=== PATIENT | male | born 1960 | race Caucasian/White ===

== ENCOUNTER 2024-04-24 21:07 | Emergency (ER) | payer OTHER, SELFPAY ==
[2024-04-24 21:19] VITALS: BP 151/84
[2024-04-24 21:47] LABS: % Basophils 0.3 % (0-2); % Eosinophils 1.5 % (0-6); % Immature Granulocytes 0.3 % (0-0.5); % Lymphocytes 28.4 % (20.5-51.1); % Monocytes 7.8 % (1.7-9.3); % Neutrophils 61.7 % (42.2-75.2); Absolute Eosinophils 0.1 10^3/uL (0-0.7); Absolute Lymphocytes 2.5 10^3/uL (1.2-3.4); Absolute Monocytes 0.7 10^3/uL (0.1-0.6); Absolute Neutrophils 5.5 10^3/uL (1.4-6.5); Hematocrit 44.3 % (39.0-52.0); Hemoglobin 14.4 g/dL (13.0-18.0); Mean Corp Hgb Conc. 32.5 g/dL (33.0-37.0); Mean Corpuscular Hgb 29.1 pg (27.0-31.0); Mean Corpuscular Volume 89.7 fL (80.0-94.0); Mean Platelet Volume 9.4 fL (7.4-10.4); Nucleated Red Blood Cells % 0 % (-); Platelet Count 212 10^3/uL (130-400); Red Blood Cell Count 4.94 10^6/uL (4.70-6.10); Red Cell Dist. Width 13.2 % (11.5-14.5); White Blood Cell Count 8.9 10^3/uL (4.8-10.8)
[2024-04-24 21:59] LABS: Urine Albumin Negative (Neg - Trace); Urine Bilirubin Negative (Negative); Urine Character Clear (Clear); Urine Color Yellow; Urine Glucose 3+ (Negative); Urine Ketone Negative (Negative); Urine Leukocyte Negative (Negative); Urine Nitrite Negative (Negative); Urine Occult Blood Negative (Negative); Urine Urobilinogen Negative (Neg - 1+)
[2024-04-24 22:12] LABS: ALT (SGPT) < 10 U/L (0-50); AST (SGOT) 23 U/L (17-59); Albumin 4.2 g/dl (3.5-5.0); Alkaline Phosphatase 76 U/L (38-126); Blood Urea Nitrogen 22 mg/dl (9-20); Calcium 9.2 mg/dl (8.4-10.2); Carbon Dioxide 29 mmol/L (22-30); Chloride 102 mmol/L (98-107); Glucose 114 mg/dl (70-99); Lipase 312 U/L (23-300); Potassium 4.2 mmol/L (3.5-5.1); Sodium 141 mmol/L (135-145); Total Bilirubin 0.4 mg/dl (0.2-1.3); Total Protein 6.9 g/dl (6.3-8.2); eGFR 55.43
--- NOTE | 2024-04-24 23:41 | ED.GENMED ---
History of Present Illness
General
Chief Complaint: Flank Pain
Source: patient and spouse
Exam Limitations: none
Time Seen by Provider: 04/24/24 22:54
Nursing documentation reviewed up to this point in time: agreed with
History of Present Illness
History of Present Illness:
This is a pleasant 64-year-old male who presents to the emergency department with flank pain that has been having intermittently for the last year. He is concerned because he has a kidney stone history. Patient denies fever chills or any urinary
symptoms. Does report intermittent nausea or vomiting. Denies chest pain or shortness of
Past History
Past History
ED Past Medical History: GERD, HTN, Hypercholesterolemia, NIDDM, Psychiatric (Anxiety) and Other (Gastritis, Vertigo, Migraines,)
ED Past Surgical History: Tonsilectomy and Other (Anal fissure repair)
Social History
Tobacco: Non-smoker
Alcohol: None
Personal:
Living: with family
Employment: Employed ([employer])
Family History
Family History: CAD
Review of Systems
Review of Systems
Allergies reviewed?: Yes
All Other Systems: ROS reviewed and negative except as documented in HPI and ROS
Constitutional: Denies fever
ABD/GI: Denies abdominal pain, nausea, vomiting, constipated or black stools
: Reports flank pain
Psychiatric: Reports anxiety
Phy Exam
General Physical Exam
General Presentation: well appearing and mild distress
General age: appears stated age
General Habitus: normal
General Mental: alert
General Hydration: appears well hydrated
Cardiovascular Exam
Cardiovascular Exam: regular rate/rhythm and no edema
Pulmonary Exam
Pulmonary Exam: lungs clear and no respiratory distress
Musculoskeletal Exam
Musculoskeletal Exam: full ROM, no edema and neuro vasc intact
Skin Exam
Skin Exam: normal color and warm/dry
Psychiatric Exam
Psychiatric Exam: normal mood/affect
Course
Orders/Labs/Results
Orders:
Orders
04/24/24 21:27
CMP [Comprehensive Metabolic Panel] Urgent
Complete Blood Count/With Diff Urgent
Lipase Urgent
04/24/24 21:33
Urine Culture Reflexed from UA [Urinalysis Reflex To Culture] Urgent
Date Specimen was Collected: 04/24/24
Time Specimen was Collected: 21:23
04/24/24 23:47
Ketorolac [Toradol] 15 mg IV NOW STA
04/25/24 00:04
CT Abd/pelvis W Iv Cont Urgent
Reason For Exam: flank pain
04/25/24 02:36
Lidocaine [Lidocaine 4% Patch] 1 patch TOPICAL NOW STA
Apply Lidocaine patch(s) to:: r side of spine
Abnormal Lab Results
04/24/24 04/24/24
21:27 21:33
MCHC 32.5 L g/dL
(33.0-37.0)
Absolute Monos (auto) 0.7 H 10^3/uL
(0.1-0.6)
BUN 22 H mg/dl
(9-20)
Creatinine 1.4 H mg/dL
(0.7-1.3)
Glucose 114 H mg/dl
(70-99)
Lipase 312 H U/L
(23-300)
Urine Glucose 3+ A
(Negative)
04/24/24 21:27
04/24/24 21:27
Vital Signs
Initial and Last Documented VS:
Initial Vital Signs
Temp Pulse Resp BP Pulse Ox
98.2 F 74 18 151/84 99
04/24/24 21:19 04/24/24 21:19 04/24/24 21:19 04/24/24 21:19 04/24/24 21:19
Last Documented Vital Signs
Temp Pulse Resp BP Pulse Ox
98.2 F 74 19 158/91 96
04/24/24 21:19 04/25/24 02:45 04/25/24 02:45 04/25/24 02:45 04/25/24 02:45
*Critical Care Note
Total Time (30-74mins, 75-104mins- exclusive of procedures): Not Applicable
Update Note
Update Note:
CT AP with contrast
Comparison: None available
IMPRESSION:
No definite cause for acute abdominal pain identified.
Normal appendix.
No calcified gallstones.
No bowel obstruction or bowel wall thickening.
No obstructive urolithiasis.
No free fluid nor free air.
ED Attending Note
-
Portions of this chart may have been created with voice recognition software.� Occasional wrong word or��sound alike� substitutions may have occurred due to the inherent limitations of voice recognition software.
Discharge Plan
Departure
Patient Disposition: Home (Routine Discharge)
Date of Disposition: 04/25/24
Time of Disposition: 02:44
Patient with high blood pressure during this ER visit?: Yes
Condition: Good
Discharge Problem:
Chronic flank pain
Instructions: Flank Pain (DC), BLOOD PRESSURE, Musculoskeletal Pain
Prescriptions:
No Action
aspirin 81 MG tablet,delayed release (DR/EC)
81 mg PO DAILY
omeprazole 20 MG capsule,delayed release(DR/EC)
20 mg PO BID Qty: 30 0RF
sucralfate [Carafate] 1 GM/10 ML suspension
1 gm PO Q6 Qty: 560 0RF
Rx Instructions:
take for next 2 weeks
losartan 50 mg Tablet
50 mg PO BID
atorvastatin 10 mg Tablet
10 mg PO DAILY
Patient Comments:
alprazolam [Xanax] 0.25 mg Tablet
0.25 mg PO HS PRN (Reason: anxiety)
Xigduo XR 10-1,000 mg Tablet, Ir - Er, Biphasic 24hr
1 tab PO DAILY
Basaglar KwikPen U-100 Insulin
42 units SC DAILY
Referrals:
Moises Farley MD [Family Provider] -
Activity Restrictions/Additional Instructions:
Please use the lidocaine patches that you have at home. Apply 1 to your back every 12 hours. Use only as needed. Please follow-up with your primary care provider for recheck and further testing.
It was a pleasure meeting you and taking part in your care. We hope for your continued healing and wellness.
Please read discharge instructions in their entirety. However, they are for general education and may not describe your exact diagnosis at discharge. Information on your ER visit and medical conditions were discussed with you along with appropriate
follow up information...
If indicated, please take your medications as instructed and indicated on discharge paperwork.
Please schedule a follow up appointment as directed. Call to schedule an appointment
Please return to the emergency department with ANY change in, persisting, or worsening of symptoms. If any of your symptoms do not improve, or persist, or become more severe within 6-12 hours, please return to the emergency department for further
care.
Please return to the emergency department if you develop a headache, neck pain/stiffness, fever greater than 100.4F, chest pain, shortness of breath, persistent nausea, vomiting, slurred speech, difficulty walking, numbness/tingling, weakness, signs
of infection or any other symptoms that are worrisome to you.
If you have any questions or concerns please do not hesitate to call the Hospital at or E-mail me directly at [email or web address]
Interventions
Interventions:
*Risk Screen - Suicide Last Done: 04/24/24 22:56
*General Assessment Last Done: 04/24/24 21:19
*Neglect/Abuse Screening Last Done: 04/24/24 22:56
ED- Fall Risk Assessment Last Done: 04/24/24 22:55
*ED COVID-19 Vaccine History Last Done: 04/24/24 22:56
*Nursing Disposition Last Done: 04/25/24 02:50
KJ-Oqnyqu-Ozqxbmaxtd Assessment Last Done: 04/24/24 22:55
ED-Male Genitourinary Assessment Last Done: 04/24/24 22:55
Discharge Date and Time
Discharge Date/Time: 04/25/24 02:50
Print Language: AMERICAN
[2024-04-24] MEDS: TORADOL 15 MG IV (23:49)
[2024-04-25] MEDS: LIDOCAINE 4% PATCH 1 PATCH TOPICAL (02:40)
[2024-04-25 02:45] VITALS: BP 158/91
== END 2024-04-25 02:50 | disposition home or self-care (01) ==
LOC: EMR 21:07
PROVIDERS: Emergency Medicine; EMERGENCY PHYSICIAN Student in an Organized Health Care Education/Training Program; FAMILY PHYSICIAN Internal Medicine
DX: G89.29 Other chronic pain (principal); R10.9 Unspecified abdominal pain; K21.9 Gastro-esophageal reflux disease without esophagitis; I10 Essential (primary) hypertension; E78.00 Pure hypercholesterolemia, unspecified; E11.9 Type 2 diabetes mellitus without complications; Z87.442 Personal history of urinary calculi
CPT/HCPCS: 99284; 96374; 74177; 80053; 81003; 83690; 85025; Q9967

== ENCOUNTER → 2024-04-26 14:46 | Outpatient (REF) | payer OTHER, SELFPAY | LOC: RAD 14:46 | PROVIDERS: ATTENDING PHYSICIAN Internal Medicine | DX: S39.012S Strain of muscle, fascia and tendon of lower back, sequela (principal) | CPT/HCPCS: 72110; 73502 ==

== ENCOUNTER 2025-01-19 11:54 | Outpatient (RCR) | payer OTHER, SELFPAY | END 2025-01-19 23:59 | disposition home or self-care (01) | LOC: RPT 11:54 | PROVIDERS: ATTENDING PHYSICIAN Internal Medicine | DX: R42 Dizziness and giddiness (principal); M54.50 Low back pain, unspecified; Z73.6 Limitation of activities due to disability; G20.A1 Parkinson's disease without dyskinesia, without mention of fluctuations | CPT/HCPCS: 97112; 97163 ==

== ENCOUNTER 2025-02-20 14:10 | Outpatient (RCR) | payer OTHER, SELFPAY | END 2025-02-20 23:59 | disposition home or self-care (01) | LOC: RPT 14:10 | PROVIDERS: ATTENDING PHYSICIAN Internal Medicine | DX: R42 Dizziness and giddiness (principal); M54.50 Low back pain, unspecified; Z73.6 Limitation of activities due to disability; G20.A1 Parkinson's disease without dyskinesia, without mention of fluctuations | CPT/HCPCS: 97110; 97112; 97140 ==

== ENCOUNTER 2025-03-17 09:48 | Outpatient (RCR) | payer OTHER, SELFPAY | END 2025-03-17 23:59 | disposition home or self-care (01) | LOC: RPT 09:48 | PROVIDERS: ATTENDING PHYSICIAN Internal Medicine | DX: R42 Dizziness and giddiness (principal); M54.50 Low back pain, unspecified; Z73.6 Limitation of activities due to disability; G20.A1 Parkinson's disease without dyskinesia, without mention of fluctuations; R26.2 Difficulty in walking, not elsewhere classified | CPT/HCPCS: 97110; 97112; 97140; 97164 ==

== ENCOUNTER 2025-03-24 02:28 | Emergency (ER) | payer OTHER, SELFPAY ==
[2025-03-24 02:32] VITALS: BP 169/88
[2025-03-24 02:48] VITALS: BP 155/83
[2025-03-24 03:00] VITALS: BP 148/84
[2025-03-24 03:38] LABS: Hematocrit 46.0 % (39.0-52.0); Hemoglobin 14.6 g/dL (13.0-18.0); Mean Corp Hgb Conc. 31.7 g/dL (33.0-37.0); Mean Corpuscular Volume 91.1 fL (80.0-94.0); Nucleated Red Blood Cells % 0 % (-); Platelet Count 211 10^3/uL (130-400); Red Cell Dist. Width 13.0 % (11.5-14.5)
[2025-03-24 03:53] LABS: ALT (SGPT) 14 U/L (0-50); AST (SGOT) 22 U/L (17-59); Albumin 4.4 g/dl (3.5-5.0); Alkaline Phosphatase 73 U/L (38-126); Blood Urea Nitrogen 16 mg/dl (9-20); Calcium 9.4 mg/dl (8.4-10.2); Carbon Dioxide 31 mmol/L (22-30); Chloride 102 mmol/L (98-107); Glucose 107 mg/dl (70-99); Potassium 4.3 mmol/L (3.5-5.1); Sodium 138 mmol/L (135-145); Total Protein 7.0 g/dl (6.3-8.2); eGFR > 60.00
[2025-03-24 04:04] LABS: Troponin I < 0.012 ng/ml
[2025-03-24 05:00] VITALS: BP 158/84
[2025-03-24 06:00] LABS: Troponin I < 0.012 ng/ml
--- NOTE | 2025-03-24 06:16 | ED.GENMED ---
History of Present Illness
General
Chief Complaint: Chest Pain
Source: patient
Exam Limitations: none
Time Seen by Provider: 03/24/25 02:43
History of Present Illness
History of Present Illness:
Note:
CHIEF COMPLAINT(S)
Intermittent chest pain and neck discomfort.
HISTORY OF PRESENT ILLNESS
The patient is a 65-year-old male with a history of Parkinsons disease, glaucoma, gastroesophageal reflux disease, and type 2 diabetes, who presented with intermittent chest pain and neck discomfort. These symptoms began earlier in the week but
became more concerning the evening prior to presentation. At approximately 7:30 PM, the patient lay down and fell asleep, only to be awakened around 2:00 AM by pain. Upon checking his blood pressure, he noted irregular readings, contributing to
anxiety about his condition. He mentioned that a physician he consulted earlier suggested he visit a hospital, but at that time, he opted not to go. The pain subsided somewhat, especially during physical activity, as evidenced by walking back home
without shortness of breath. He exercises regularly with a program known as [employer], designed for patients with Parkinsons disease, and hasnt had similar episodes in the past years that required emergency intervention. Historical episodes
were attributed to gastroesophageal reflux disease.
PAST MEDICAL AND SURGICAL HISTORY
The patient has a notable medical history of Parkinsons disease, glaucoma, gastroesophageal reflux disease, and type 2 diabetes. He has experienced chest pain in the past, which was attributed to reflux.
ADDITIONAL HISTORY OBTAINED FROM SOURCES OTHER THAN THE PATIENT
The patient shared information initially provided by a physician suggesting emergency care due to his symptoms.
CHRONIC MEDICAL CONDITIONS SIGNIFICANTLY AFFECTING CARE
Parkinsons disease
Glaucoma
Gastroesophageal reflux disease (GERD)
Type 2 diabetes
SOCIAL HISTORY
The patient denies smoking, alcohol use, and recreational drug use. Professionally, he was formerly a computer hardware technician and musician. He engages in regular exercise tailored for Parkinson�s disease management and attends physical therapy for knee
issues.
REVIEW OF SYSTEMS
- Cardiovascular: Intermittent chest pain occurring since earlier this week, not exacerbated by physical activity.
- Musculoskeletal: Participates in regular physical exercise and physical therapy for knee concerns.
PHYSICAL EXAM
General: Alert, no acute distress.
Skin: Warm, dry.
Head: Normocephalic, atraumatic.
Neck: Supple, trachea midline.
Eye Ears, nose, mouth, and throat: Oral mucosa moist.
Cardiovascular: Normal peripheral perfusion, No edema.
Respiratory: Respirations are non-labored.
Gastrointestinal: Abdomen nondistended
Back: Normal range of motion, Normal alignment.
Musculoskeletal: Normal range of motion, normal strength.
Neurological: Alert and oriented to person, place, time, and situation, No focal neurological deficit observed.
Psychiatric: Cooperative, appropriate mood & affect.
PLAN
- Perform a thorough cardiac workup.
- Contact Dr. Zamarripa office to arrange for further cardiac evaluation, possibly including a stress test.
- Await a call from Dr. Zamarripa office for an appointment.
DIFFERENTIAL DIAGNOSIS
The Differential Diagnosis includes, in no particular order and is not limited to:
1. Cardiac ischemia
2. Angina pectoris
3. Gastroesophageal reflux disease
4. Anxiety-related somatic symptoms
5. Musculoskeletal pain
6. Cervical radiculopathy
7. Costochondritis
8. Acute coronary syndrome
9. Pericarditis
10. Pulmonary embolism (less likely)
Disposition:
SUMMARY OF ENCOUNTER
The patient, a 65-year-old male, presented with intermittent chest pain. Initial diagnostic testing, including future opponents and EKGs, returned negative results, and the patients chest pain lessened while at rest in the emergency department.
Given the absence of acute findings, it was deemed safe for the patient to be discharged with plans for further evaluation through a cardiology follow-up.
DISPOSITION
Discharge.
PLAN
Follow-up with cardiology through the chest pain follow-up hotline.
PATIENT EDUCATION AND COUNSELING
The patient was advised about the necessity for further evaluation with cardiology to ensure comprehensive cardiac assessment and management of symptoms.
FOLLOW-UP INSTRUCTIONS
The patient is instructed to follow up with cardiology through the chest pain follow-up hotline.
MEDICATION RECONCILIATION
Prescription medication was considered, but ultimately not given after discussion with the patient/family.
MEDICAL DECISION MAKING
- Number and Complexity of Problems Addressed: Chronic conditions affecting care: Parkinsons disease, glaucoma, gastroesophageal reflux disease (GERD), type 2 diabetes.
Differential diagnosis consideration included cardiac ischemia, angina pectoris, GERD, anxiety-related somatic symptoms, musculoskeletal pain, cervical radiculopathy, costochondritis, acute coronary syndrome, pericarditis, and pulmonary embolism.
- Data:
Category 1:
- Clinical information was obtained from an independent historian.
- EKG tests were ordered and reviewed.
Category 3:
- Consideration of the patient�s stable condition and management plan discussed with the patient.
-Risk:
- Prescription medication was considered, but ultimately not given after discussion with the patient/family.
- Consideration of Admission/Observation: Escalation of care including admission/observation was considered given the complexity and risk of the patients presenting complaint, exam findings, and their underlying comorbidities. However, ultimately I
feel the patient is safe for outpatient management with close follow-up. Reasoning: Work-up reassuring, does not reveal any acute life/organ threatening processes, patients symptoms well controlled upon reevaluation, reexamination is reassuring,
vitals are stable, patient agreeable with discharge, reliable for follow-up.
DIAGNOSIS
- R07.9 Chest pain, unspecified.
- Z79.4 Long-term (current) use of insulin (for type 2 diabetes).
Past History
Past History
ED Past Medical History: GERD, HTN, Hypercholesterolemia, NIDDM, Psychiatric (Anxiety) and Other (Gastritis, Vertigo, Migraines,)
ED Past Surgical History: Tonsilectomy and Other (Anal fissure repair)
Social History
Tobacco: Non-smoker
Alcohol: None
Personal:
Living: with family
Employment: Employed ([employer])
Family History
Family History: CAD
Phy Exam
Physical Exam
Physical Exam:
.
Scores
Heart Score for Chest Pain Patients
STEMI patient?: No
History: Slightly or Non-Suspicious
ECG: Normal
Age: >/= 65 years
Risk Factors: No Risk Factors
Troponin: >1 - <3 x Normal Limit
Heart Score for Chest Pain Patients: 3
Heart Score Risk: 2.5% MACE over next 6 weeks
Course
Orders/Labs/Results
Orders:
Orders
03/24/25 02:29
Electrocardiogram (*1) Urgent
Reason for Study: Other
Other Reason for Exam: Respiratory Distress
Cardiac Monitoring- Treatment ONCE
EKG- Treatment ONCE
IV Insert/Care/Rem.- Treatment PRN
CR Chest - 2 Views Urgent
Comment:
Reason For Exam: respiratory distress
O2 Therapy [RESP] Urgent
Titrate/Wean O2 to maintain O2 sat greater than (%): 93
Special Instructions: TO MAINTAIN CONTINUOUS O2 SATS >/= 93%
Pulse Ox/cont/shift [RESP] Urgent
Quantity: 1
Special Instructions: continuous pulse ox
03/24/25 03:13
Complete Blood Count/With Diff Urgent
Comprehensive Metabolic Panel Urgent
NT-proBNP Urgent
Troponin I Urgent
03/24/25 04:02
EKG [Electrocardiogram (*1)] Urgent
Reason for Study: Chest Pain
03/24/25 04:03
EKG- Treatment ONCE
03/24/25 04:52
Troponin I Urgent
Abnormal Lab Results
03/24/25
03:13
MCHC 31.7 L g/dL
(33.0-37.0)
Carbon Dioxide 31 H mmol/L
(22-30)
Glucose 107 H mg/dl
(70-99)
03/24/25 03:13
03/24/25 03:13
Vital Signs
Initial and Last Documented VS:
Initial Vital Signs
Temp Pulse Resp BP Pulse Ox
98.1 F 77 20 169/88 96
03/24/25 02:32 03/24/25 02:32 03/24/25 02:32 03/24/25 02:32 03/24/25 02:32
Last Documented Vital Signs
Temp Pulse Resp BP Pulse Ox
98.1 F 82 16 160/82 96
03/24/25 02:32 03/24/25 05:45 03/24/25 05:45 03/24/25 06:32 03/24/25 06:17
*Pulse Oximetry
SaO2: 96
Oxygen Mode of Delivery: Room air
Patient hypoxic: not evaluated
*Critical Care Note
Total Time (30-74mins, 75-104mins- exclusive of procedures): Not Applicable
ED Attending Note
-
Portions of this chart may have been created with voice recognition software.� Occasional wrong word or��sound alike� substitutions may have occurred due to the inherent limitations of voice recognition software.
Discharge Plan
Departure
Patient Disposition: Home (Routine Discharge)
Date of Disposition: 03/24/25
Time of Disposition: 06:19
Patient with high blood pressure during this ER visit?: Yes
Condition: Good
Discharge Problem:
Chest pain
Instructions: Chest Pain CBC Follow Up, BLOOD PRESSURE
Prescriptions:
No Action
aspirin 81 MG tablet,delayed release (DR/EC)
81 mg PO DAILY
omeprazole 20 MG capsule,delayed release(DR/EC)
20 mg PO BID Qty: 30 0RF
sucralfate [Carafate] 1 GM/10 ML suspension
1 gm PO Q6 Qty: 560 0RF
Rx Instructions:
take for next 2 weeks
losartan 50 mg Tablet
50 mg PO BID
atorvastatin 10 mg Tablet
10 mg PO DAILY
Patient Comments:
alprazolam [Xanax] 0.25 mg Tablet
0.25 mg PO HS PRN (Reason: anxiety)
Xigduo XR 10-1,000 mg Tablet, Ir - Er, Biphasic 24hr
1 tab PO DAILY
Basaglar KwikPen U-100 Insulin
42 units SC DAILY
sucralfate 100 mg/mL suspension
10 ml PO TID Qty: 400 0RF
Referrals:
Moises Farley MD [Family Provider, Internal Medicine]
Activity Restrictions/Additional Instructions:
Thank You for choosing [facility].
It was a pleasure meeting you and taking part in your care. We hope for your continued healing and wellness.
Please read discharge instructions in their entirety. However, they are for general education and may not describe your exact diagnosis at discharge. Information on your ER visit and medical conditions were discussed with you along with appropriate
follow up information...
If indicated, please take your medications as instructed and indicated on discharge paperwork.
Please schedule a follow up appointment as directed. Call to schedule an appointment
Please return to the emergency department with ANY change in, persisting, or worsening of symptoms. If any of your symptoms do not improve, or persist, or become more severe within 6-12 hours, please return to the emergency department for further
care.
Please return to the emergency department if you develop a headache, neck pain/stiffness, fever greater than 100.4F, chest pain, shortness of breath, persistent nausea, vomiting, slurred speech, difficulty walking, numbness/tingling, weakness, signs
of infection or any other symptoms that are worrisome to you.
If you have any questions or concerns please do not hesitate to call the Hospital at .
Interventions
Interventions:
*Risk Screen - Suicide Last Done: 03/24/25 02:32
*General Assessment Last Done: 03/24/25 02:32
*Neglect/Abuse Screening Last Done: 03/24/25 02:41
*ED- Fall Risk Assessment Last Done: 03/24/25 02:41
*ED COVID-19 Vaccine History Last Done: 03/24/25 06:33
*ED Influenza Vaccine History Last Done: 03/24/25 06:33
*Nursing Disposition Last Done: 03/24/25 06:33
ED- Cardiac Assessment Last Done: 03/24/25 05:38
Discharge Date and Time
Discharge Date/Time: 03/24/25 06:33
Print Language: [email or web address]
[2025-03-24 06:32] VITALS: BP 160/82
== END 2025-03-24 06:33 | disposition home or self-care (01) ==
LOC: EMR 02:28
PROVIDERS: EMERGENCY PHYSICIAN Student in an Organized Health Care Education/Training Program; FAMILY PHYSICIAN Internal Medicine
DX: R07.89 Other chest pain (principal); Y93.71 Activity, boxing; M54.2 Cervicalgia; G20.A1 Parkinson's disease without dyskinesia, without mention of fluctuations; E11.9 Type 2 diabetes mellitus without complications; E78.00 Pure hypercholesterolemia, unspecified; F41.9 Anxiety disorder, unspecified; H40.9 Unspecified glaucoma; I10 Essential (primary) hypertension; K21.9 Gastro-esophageal reflux disease without esophagitis; Z82.49 Family history of ischemic heart disease and other diseases of the circulatory system; Z87.19 Personal history of other diseases of the digestive system
CPT/HCPCS: 99283; 71046; 71275; 80053; 83880; 84484; 85025; 93005; Q9967

== ENCOUNTER 2025-03-24 12:24 | Emergency (ER) | payer OTHER, SELFPAY ==
[2025-03-24] VITALS (8 sets, daily range): BP systolic 143–158; BP diastolic 76–90; BMI 38.4
[2025-03-24 14:07] LABS: Hematocrit 44.3 % (39.0-52.0); Hemoglobin 14.8 g/dL (13.0-18.0); Mean Corp Hgb Conc. 33.4 g/dL (33.0-37.0); Mean Corpuscular Volume 87.5 fL (80.0-94.0); Nucleated Red Blood Cells % 0 % (-); Platelet Count 216 10^3/uL (130-400); Red Cell Dist. Width 13.1 % (11.5-14.5)
[2025-03-24 14:18] LABS: ALT (SGPT) 10 U/L (0-50); AST (SGOT) 20 U/L (17-59); Albumin 4.4 g/dl (3.5-5.0); Alkaline Phosphatase 72 U/L (38-126); Blood Urea Nitrogen 16 mg/dl (9-20); Calcium 9.3 mg/dl (8.4-10.2); Carbon Dioxide 27 mmol/L (22-30); Chloride 101 mmol/L (98-107); Estimated Creatinine Clearance 83 ml/min; Glucose 116 mg/dl (70-99); Potassium 4.4 mmol/L (3.5-5.1); Sodium 134 mmol/L (135-145); Total Protein 7.4 g/dl (6.3-8.2); eGFR > 60.00
[2025-03-24 14:29] LABS: Troponin I < 0.012 ng/ml
--- NOTE | 2025-03-24 14:29 | ED.GENMED ---
History of Present Illness
General
Chief Complaint: Chest Pain
Source: patient
Exam Limitations: none
Time Seen by Provider: 03/24/25 13:44
Nursing documentation reviewed up to this point in time: agreed with
History of Present Illness
History of Present Illness:
65.yr old male with past medical history of Parkinson's reflux glaucoma type 2 diabetes presents to the ER for evaluation. Patient was seen here last night for evaluation of chest pain.. Patient has had almost constant chest pain which he
describes as burning across his chest since Thursday for the past 4 days. He does feel some burning to the top part of his left forearm. He was very concerned and anxious over this. He saw his family doctor who started him on Zoloft for. He was
seen here last night had a cardiac workup and was instructed to follow-up with cardiology. Patient is back today because he tells me he forgot to mention that his brother was recently diagnosed with an aortic aneurysm and he is concerned about
this. He admits that this all may be very well his anxiety or reflux but he is very concerned and wants to make sure that he does not have an aneurysm
He does have a history of reflux he does report he eats spicy foods and he used to be on tipple greaser fate years ago but that was discontinued. He still takes Protonix. He does feel that this is a burning type pain.
He denies any actual shortness of breath.
Past History
Past History
ED Past Medical History: GERD, HTN, Hypercholesterolemia, NIDDM, Psychiatric (Anxiety) and Other (Gastritis, Vertigo, Migraines,)
ED Past Surgical History: Tonsilectomy and Other (Anal fissure repair)
Social History
Tobacco: Non-smoker
Alcohol: None
Personal:
Living: with family
Employment: Employed (computers)
Family History
Family History: CAD
Phy Exam
General Physical Exam
General Presentation: no apparent distress
General age: appears stated age
General Skin: warm and dry
General Habitus: normal
General Mental: anxious
General Hydration: appears well hydrated
Cardiovascular Exam
Cardiovascular Exam: regular rate/rhythm, no murmur and normal peripheral pulses
Pulmonary Exam
Pulmonary Exam: lungs clear and no respiratory distress
Gastrointestinal Exam
Gastrointestinal Exam: non tender and soft
Neurological Exam
Neurological Exam: alert and oriented x3
Musculoskeletal Exam
Musculoskeletal Exam: full ROM
Skin Exam
Skin Exam: normal color and warm/dry
Psychiatric Exam
Psychiatric Exam: normal mood/affect
Scores
Heart Score for Chest Pain Patients
STEMI patient?: Not applicable
Course
Orders/Labs/Results
Orders:
Orders
03/24/25 12:38
EKG [Electrocardiogram (*1)] Urgent
Reason for Study: Chest Pain
EKG- Treatment ONCE
03/24/25 13:55
Complete Blood Count/With Diff Urgent
Comprehensive Metabolic Panel Urgent
Troponin I Urgent
03/24/25 14:50
0.9% Sodium Chloride 1000 ml [Nss] 1,000 ml IV BOLUS
Mag Hydrox/Al Hydrox/Simeth [Maalox] 30 ml Phenobarb/Hyoscy/Atropine/Scop [] 10 ml PO NOW
03/24/25 14:53
CT Chest Angio W/wo Iv Contras Urgent
Comment:
Reason For Exam: cp
03/24/25 15:00
Mag Hydrox/Al Hydrox/Simeth [Maalox] 30 ml .ROUTE .STK-MED ONE
Phenobarb/Hyoscy/Atropine/Scop [] 10 ml .ROUTE .STK-MED ONE
Abnormal Lab Results
03/24/25
13:55
Neutrophils % 75.5 H %
(42.2-75.2)
Lymphocytes % 17.8 L %
(20.5-51.1)
Sodium 134 L mmol/L
(135-145)
Glucose 116 H mg/dl
(70-99)
03/24/25 13:55
03/24/25 13:55
Vital Signs
Initial and Last Documented VS:
Initial Vital Signs
Temp Pulse Resp BP Pulse Ox
98.7 F 85 16 153/81 97
03/24/25 12:30 03/24/25 12:30 03/24/25 12:30 03/24/25 12:30 03/24/25 12:30
Last Documented Vital Signs
Temp Pulse Resp BP Pulse Ox
98.7 F 81 23 150/90 96
03/24/25 12:30 03/24/25 14:45 03/24/25 14:45 03/24/25 14:00 03/24/25 14:45
[employer] consulted with Physician
[employer] consulted with physician?: Yes
Name of Physician Consulted: Kathryn
MDM/Problems Addressed
Differential Diagnosis Includes:
Not limited to reflux, ACS, musculoskeletal chest pain less likely dissection or aneurysm
MDM/Problems Addressed:
Patient is document is a 65-year-old male presented back to the ER for evaluation. He was seen here last night/early this morning for chest pain. Patient came back to the ER because he still have persistent burning in his chest but also forgot to
mention that his brother has an aortic aneurysm and he did not mention that last night. Patient presented awake alert no acute distress vitals are stable. He has reflux and does feel however that this may be reflux. He was given GI cocktail here
which did improve his symptoms. Troponin was again repeated and negative CT a done today is negative for acute thoracic aneurysm or dissection. Patient did speak with cardiology today patient to be placed again on hotline will DC with Sucralfate
*Radiology
Radiology exam reviewed: radiology read reviewed
*Pulse Oximetry
SaO2: 96
Oxygen Mode of Delivery: Room air
Patient hypoxic: no
*EKG
Interpreted by ED Provider?: Yes
Interpretation: normal
Comparison EKG: no changes
Heart Rate: 83
Rate: normal
Rhythm: sinus
Ischemia: no ischemia
*Critical Care Note
Total Time (30-74mins, 75-104mins- exclusive of procedures): Not Applicable
ED Attending Note
-
Portions of this chart may have been created with voice recognition software.� Occasional wrong word or��sound alike� substitutions may have occurred due to the inherent limitations of voice recognition software.
Discharge Plan
Departure
Patient Disposition: Home (Routine Discharge)
Date of Disposition: 03/24/25
Time of Disposition: 17:35
Patient with high blood pressure during this ER visit?: Yes
Condition: Fair
Covid-19: Not Applicable
Discharge Problem:
Chest pain, Acid reflux
Instructions: Acid Reflux and GERD in Adults (DC), Chest Pain CBC Follow Up, BLOOD PRESSURE
Prescriptions:
New
sucralfate 100 mg/mL suspension
10 ml PO TID Qty: 400 0RF
No Action
aspirin 81 MG tablet,delayed release (DR/EC)
81 mg PO DAILY
omeprazole 20 MG capsule,delayed release(DR/EC)
20 mg PO BID Qty: 30 0RF
sucralfate [Carafate] 1 GM/10 ML suspension
1 gm PO Q6 Qty: 560 0RF
Rx Instructions:
take for next 2 weeks
losartan 50 mg Tablet
50 mg PO BID
atorvastatin 10 mg Tablet
10 mg PO DAILY
Patient Comments:
alprazolam [Xanax] 0.25 mg Tablet
0.25 mg PO HS PRN (Reason: anxiety)
Xigduo XR 10-1,000 mg Tablet, Ir - Er, Biphasic 24hr
1 tab PO DAILY
Basaglar KwikPen U-100 Insulin
42 units SC DAILY
Referrals:
Jesse Mcqueen MD [Active, Cardiology]
Moises Farley MD [Family Provider, Internal Medicine]
Activity Restrictions/Additional Instructions:
As discussed follow-up with cardiology as previously recommended you are placed on the chest pain hotline please call the office Thursday if you do not hear back from the office. In addition Carafate was sent to your pharmacy take as directed.
Follow-up with a family doctor next 2 days reevaluation of her symptoms as well.
Interventions
Interventions:
*Risk Screen - Suicide Last Done: 03/24/25 12:30
*General Assessment Last Done: 03/24/25 13:47
*Neglect/Abuse Screening Last Done: 03/24/25 12:30
ED- Cardiac Assessment Last Done: 03/24/25 13:47
Discharge Date and Time
Print Language: BAHRAINI
[2025-03-24] MEDS: NSS 1000 IV (15:02)
[2025-03-24] MEDS: MAALOX 40 PO (15:02)
== END 2025-03-24 17:58 | disposition home or self-care (01) ==
LOC: EMR 12:24
PROVIDERS: Nurse Practitioner; EMERGENCY PHYSICIAN Emergency Medicine; FAMILY PHYSICIAN Internal Medicine
DX: R07.89 Other chest pain (principal); K21.9 Gastro-esophageal reflux disease without esophagitis; G20.A1 Parkinson's disease without dyskinesia, without mention of fluctuations; H40.9 Unspecified glaucoma; E11.9 Type 2 diabetes mellitus without complications; E78.00 Pure hypercholesterolemia, unspecified; I10 Essential (primary) hypertension; I25.10 Atherosclerotic heart disease of native coronary artery without angina pectoris; Z82.49 Family history of ischemic heart disease and other diseases of the circulatory system; Z87.19 Personal history of other diseases of the digestive system
CPT/HCPCS: 99284; 96360; 71275; 80053; 84484; 85025; 93005; Q9967

== ENCOUNTER 2025-04-17 10:24 | Outpatient (RCR) | payer OTHER, SELFPAY | END 2025-04-17 23:59 | disposition home or self-care (01) | LOC: RPT 10:24 | PROVIDERS: ATTENDING PHYSICIAN Internal Medicine | DX: R42 Dizziness and giddiness (principal); M54.50 Low back pain, unspecified; Z73.6 Limitation of activities due to disability; G20.A1 Parkinson's disease without dyskinesia, without mention of fluctuations; R26.2 Difficulty in walking, not elsewhere classified; M25.561 Pain in right knee | CPT/HCPCS: 97110; 97112; 97140 ==

== ENCOUNTER → 2025-05-12 17:41 | Outpatient (REF) | payer OTHER, SELFPAY | LOC: PAVMRI 17:41 | PROVIDERS: ATTENDING PHYSICIAN Psychiatry & Neurology Neurology; FAMILY PHYSICIAN Internal Medicine | DX: I67.9 Cerebrovascular disease, unspecified (principal); G45.9 Transient cerebral ischemic attack, unspecified | CPT/HCPCS: 70544 ==